=== PATIENT | female | born 1960 | race Caucasian/White ===

== ENCOUNTER 2019-03-17 10:50 | Outpatient (AMBR) | payer MEDICARE, MEDICAID, SELFPAY ==
--- NOTE | 2019-03-17 11:28 | PT.OIERPT ---
PT OP Initial Eval Patient Information Visit Reasons: back pain Medical Diagnosis: M54.5 Treatment Dx #1: Back Pain Treatment Dx #2: LE Weakness Start of Care: 03/17/19 Date of Onset: 3 months ago Initial Assessment Subjective Pt is a 58 y/o female c/o chronic back pain (8/10) with L LE numbness worsen 3 months ago. Pt mention that she does have a long history of back pain. Pt does not know the results of her previous xray and MRI. Pt currently has difficulty with prolonged walking, standing, sitting, chores, self care, cooking, cleaning, and performing normal ADLs. Pt mention that pain meds will decrease pain to 3/10. Objective L/S AROM: all motions are WFL with end range pain in all plane Hip PROM: all motions are WFL LE MMTs Hip Flexors- R: 3/5 L: 3-/5 Quads- R: 4-/5 L: 3/5 Hs- R: 4-/5 L: 3/5 Abductors- R: 3+/5 L: 3/5 Special Test (+) Slump on L LE Assessment Pt demonstrate back pain with LEs weakness L>R leading to decline function and difficulty with functional tasks. Pt will attempt physical therapy if pain persist Pt will be refer back to PCP Short Term and [employer]most[employer]ic Goals 1) Increase L/S AROM WNL in 6 wks to be able to perform chores 2) Decrease back pain to 2/10 in 6 wks to take less pain meds 3) Increase core strength WFL in 6 wks to be able to perform lifting activities 4) Increase hip MMTs to 4/5 in 6 wks to be able to perform ambulation with less difficulty 5) Indep with HEP Treatment Plan 1) Manual Therapy 2) Therapeutic Activities 3) Therapeutic Exercises 4) Modalities (ice, heat, estim, traction) Frequency and Duration 2 x wk for 6 wks Certification Dates: 03/17/19 to 06/17/19 Office Procedures PT Procedures PT Date of Service: 03/17/19 OP PT Eval Mod Complex 30 minutes: Yes
== END 2019-04-10 23:59 | disposition home or self-care (01) ==
PROVIDERS: PCP Nurse Practitioner; Referring Provider Nurse Practitioner; Visit Provider Nurse Practitioner
DX: M54.5 Low back pain (principal); G89.4 Chronic pain syndrome; R53.1 Weakness; R20.0 Anesthesia of skin; R26.2 Difficulty in walking, not elsewhere classified; M51.37 Other intervertebral disc degeneration, lumbosacral region; I10 Essential (primary) hypertension
CPT/HCPCS: 97162

== ENCOUNTER → 2025-09-06 | Outpatient (CLI) | payer MEDICARE, MEDICAID, SELFPAY ==
--- NOTE | 2025-09-06 12:20 | XR_ITS ---
Examination: Bone densitometry Date and time of exam: September 06, 2025, 1242 hours MEDICATIONS: Hysterectomy age 33 vitamin D 4 years levothyroxine 14 years Technique: Lumbar spine and hip total bone mineralization values of an calculated. Peak reference and age match control results have been displayed. Findings: Lumbar spine total bone mineralization is 1.175 gm/cm2. This is 1.2 standard deviations above peak reference. This is 3.0 standard deviations above age-matched controls. Hip total bone mineralization is 0.914 gm/cm2 This is 0.2 standard deviations below peak reference. This is 1.0 standard deviations above age-matched controls Impression: There is normal mineralization based on lumbar spine measurements. There is normal mineralization based on hip measurements Lumbar mineralization is increased 1.0% compared with September 03, 2023 Hip mineralization is increased 3.4% compared with September 03, 2023
== END | disposition home or self-care (01) ==
PROVIDERS: PCP Physician Assistant; Referring Provider Physician Assistant; Visit Provider Physician Assistant
DX: M85.89 Other specified disorders of bone density and structure, multiple sites (principal)
CPT/HCPCS: 77080